=== PATIENT | male | born 1970 | race Caucasian/White ===

== ENCOUNTER 2021-12-12 09:18 | Inpatient (IN) | payer SELFPAY ==
[~2021-12-12] VITALS: Ht 190.5 cm; Wt 104.0 kg
[2021-12-12 09:52] LABS: HEMATOCRIT 44.8 % (42.0-52.0); HEMOGLOBIN 15.1 g/dl (13.5-18.0); MEAN CELL VOLUME 88 fl (80.0-100.0); MEAN CORPUSCULAR HEMOGLOBIN 30 pg (27-31); MEAN CORPUSCULAR HGB CONC 34 g/dl (33.0-37.0); MEAN PLATELET VOLUME 9.6 fl (7.4-10.4); PLATELET COUNT 345 K/mm3 (130-400); RED BLOOD COUNT 5.08 M/mm3 (4.20-5.60); REDCELL DISTRIBUTION WIDTH-CV 11.8 % (11.5-14.5)
[2021-12-12 10:13] LABS: ALBUMIN 3.1 gm/dL (3.5-5.0); BAND 8 % (0-10); BILIRUBIN,TOTAL 0.4 mg/dL (0.2-1.2); C-REACTIVE PROTEIN 8.1 mg/dL (0.00-0.50); CALCIUM 9.1 mg/dL (8.4-10.2); CREATININE, serum 0.94 mg/dL (0.72-1.25); EOSINOPHIL 4 % (0-4); LYMPHOCYTE 25 % (20.0-51.0); NEUTROPHILS 55 % (42.0-75.2); PLATELET ESTIMATE NORMAL (NORMAL); TOTAL PROTEIN 7.5 gm/dL (6.2-8.1)
[2021-12-12 10:27] LABS: ERYTHROCYTE SEDIMENTATION RATE 37 mm/hr (0-15)
[2021-12-12 14:26] VITALS: BP 146/67; PULSE 82; TEMP 98.2
--- NOTE | 2021-12-12 14:48 | NUR ---
Patient resting in in bed, admitted to room 346. He is requesting food and drink [employer] to see patient. Left foot very red and swolled. Toes are black on color. He reports pain is much better in foot once the large blister that was there burst
[2021-12-12 15:43] VITALS: BP 152/84; PULSE 84; TEMP 98.3
--- NOTE | 2021-12-12 16:51 | NUR ---
Patient has returned from [facility]. He is wanting to rest. Started Iv zosyn. Denies needs. Will monitor.
--- NOTE | 2021-12-12 18:54 | NUR ---
Daija RN given report. Patient sitting at edge of bed using Urinal. He has been resting. Wound swab collacted & Consult called to .
[2021-12-12 19:40] VITALS: BP 122/75; PULSE 102; TEMP 98
--- NOTE | 2021-12-12 20:00 | NUR ---
Bedside shift report received, assumed care for material handler 1st shift. Assessment complete. A&Ox3. Denies nausea/shortness of breath/pain. VS stable. TELE reporting SR. Left AC 20g flushes without difficulty. Noted to have redness/swelling/warmth to LLE. Toes to left foot area black with redness above. Plan of care discussed for this shift to include meds/calling for questions/concerns. Verbalizes understanding/denies needs. Call light in reach. Will monitor.
--- NOTE | 2021-12-12 21:38 | NUR ---
Patient screaming out and moaning from room. States she is in pain and "needs an asprin." MYRANDA Chin notified and new orders received and initiated.
[2021-12-12 23:50] VITALS: BP 132/68; PULSE 79; TEMP 98.3
--- NOTE | 2021-12-13 01:28 | NUR ---
Resting eyes closed. No s/s of pain or discomfort.
--- NOTE | 2021-12-13 03:20 | NUR ---
[place] at nurses station moaning out. This nurse to room and patient thrashing around in bed moaning stating "it hurts so bad." Rating pain 8/10 on pain scale to left lower extremity-described as sharp burning. Morphine given per dr order. Instructed again to use call light to call when pain starts to intensify as to not let it get out of hand. Verbalizes understanding. Call light in reach. Will monitor.
[2021-12-13 03:50] VITALS: BP 130/75; PULSE 81; TEMP 98.7
--- NOTE | 2021-12-13 05:44 | NUR ---
Rested off and on this shift. Received morphine x2 for pain to left lower extremity. Denied nausea/shortness of breath. VS remained stable. NS@50ml/hr to left AC infusing without difficulty. Denies current needs. Call light in reach. Will monitor.
[2021-12-13 06:42] LABS: BASO # 0.1 K/mm3 (0.0-0.2); BASO % 0.5 % (0.0-2.0); EOS # 0.3 K/mm3 (0.0-0.7); EOS % 1.7 % (0.0-4.0); GRAN # 10.1 K/mm3 (1.4-6.5); GRAN % 64.6 % (42.2-75.2); HEMATOCRIT 43.3 % (42.0-52.0); HEMOGLOBIN 14.2 g/dl (13.5-18.0); LYMPH # 3.7 K/mm3 (1.2-3.4); LYMPH % 23.9 % (20.0-51.0); MEAN CELL VOLUME 91 fl (80.0-100.0); MEAN CORPUSCULAR HEMOGLOBIN 30 pg (27-31); MEAN CORPUSCULAR HGB CONC 33 g/dl (33.0-37.0); MEAN PLATELET VOLUME 10.3 fl (7.4-10.4); MONO # 1.3 K/mm3 (0.1-0.6); MONO % 8.4 % (1.7-9.3); PLATELET COUNT 315 K/mm3 (130-400); RED BLOOD COUNT 4.77 M/mm3 (4.20-5.60); REDCELL DISTRIBUTION WIDTH-CV 11.8 % (11.5-14.5)
[2021-12-13 07:00] LABS: ALBUMIN 2.6 gm/dL (3.5-5.0); CALCIUM 8.7 mg/dL (8.4-10.2); CREATININE, serum 0.9 mg/dL (0.72-1.25); MAGNESIUM 2.2 mg/dL (1.6-2.6); PHOSPHOROUS 3.4 mg/dL (2.3-4.7); POTASSIUM 4.1 mmol/L (3.5-4.5)
[2021-12-13 07:05] VITALS: BP 134/81; PULSE 80; TEMP 99.3
--- NOTE | 2021-12-13 07:30 | NUR ---
Pt asleep in bed upon entering the room. Pt complains of an achy pain in L foot. Redness, swelling, and warmth to L foot up to the ankle. L foot is very tender and painful to the touch. L pedal pulses were +1 and edema was pitting +2. Skin on L foot is shiny and flaking. Toes on L foot are black with toenails intact. Pt is NPO and has an IV in L AC with normal saline running at 50 ml/hr. IV site has no signs of infiltration. Pt has no other complaints at this time and wants to sleep.
--- NOTE | 2021-12-13 10:05 | NUR ---
Received report from day shift. Patient alert and oriented, resting in bed, complaining of pain in left foot. Patient denies any SOB or chest pain. Assessment performed. Morning meds administered. Patient in bed waiting for breakfast. Will continue to monitor.
[2021-12-13 11:00] VITALS: BP 131/69; PULSE 82; TEMP 99
--- NOTE | 2021-12-13 11:31 | NUR ---
dairy cattle farm worker met with patient to discuss discharge plan. Patient currently lives at home with his girl friend Ai ([phone]) here in [place]. Patient reports to being fully independent with his ADL's and uses a cane to assist with mobility. Patient has no home oxygen needs. He states that he does not currently have a PCP. Patient uses [facility] for medications which he states he has trouble affording. Patient does not have a DPOA-HC established. He has never been legally and has no children. He would like Ai and his friend Xavi marino as his agents. Patient is provided education that if he would like to make these people his agent's then he would need to complete a DPOA-HC form. Patient is provided form and instructions. RN updated that form was provided. Discharge plan:Home; will most likely need HH
[2021-12-13 15:12] VITALS: BP 152/71; PULSE 72; TEMP 98.2
--- NOTE | 2021-12-13 16:26 | NUR ---
CTA of LE ordered. Patient off of floor. Patient escorted to CT by PCT.
--- NOTE | 2021-12-13 18:21 | NUR ---
Patient taken for CTA of LE. Dr. Corrigan called to report his reading of CTA. Dr. Corrigan's number was forwarded to Dr. Rothman. Left lower extremity arterial doppler ordered for further evaluation of gangrene. Patient requested morphine for pain 04/26.
[2021-12-13 19:29] VITALS: BP 157/56; PULSE 86; TEMP 98.3
--- NOTE | 2021-12-13 19:30 | NUR ---
Shift report received, assumed care for night warehouse selector. Assessment complete. A&Ox3. Denies nausea/shortness of breath. VS stable-slightly elevated blood pressure. NS@50ml/hr to left AC-infusing difficulties. Noted to have redness/swelling/erythema to lower calf/ankle. Toes on left foot are black. Plan of care discussed for this shift to include meds/pain control/calling for questions/concerns. Verbalizes understanding. Call light in reach. Will monitor.
--- NOTE | 2021-12-13 21:15 | NUR ---
Called with c/o pain to left foot-described pain as constant throbbing. Spoke with MYRANDA Chin to see if PO pain medications could be ordered instead of IV. [place] ordered and given at this time.
--- NOTE | 2021-12-13 23:30 | NUR ---
Resting eyes closed.
[2021-12-14 00:01] VITALS: BP 135/78; PULSE 71; TEMP 98.9
[2021-12-14 03:47] VITALS: BP 135/81; PULSE 86; TEMP 99.1
--- NOTE | 2021-12-14 05:16 | NUR ---
Called c/o pain. Rating pain 8/10 on pain scale to left foot. Has already received norco-morphine given per dr order. Asked for this nurse to put a dressing on the foot. After gathering supplies and returning to room refused dressing stating "Im afraid it will hurt worse. I cant stand nothing touching it." Instructed to call if changes mind. Verbalizes understanding. Will monitor.
--- NOTE | 2021-12-14 06:00 | NUR ---
Rested off and on this shift. Received [place] for pain x2/morphine x1 for breakthrough pain. NS@50mls/hr infusing to left AC IV without difficulty. Denied nausea/shortness of breath. VS remained stable. AM labs drawn which included a Vanc trough. Denies current needs. Call light in reach. Will monitor.
[2021-12-14 06:02] LABS: BASO # 0.1 K/mm3 (0.0-0.2); BASO % 0.5 % (0.0-2.0); EOS # 0.2 K/mm3 (0.0-0.7); EOS % 1.2 % (0.0-4.0); GRAN # 9.7 K/mm3 (1.4-6.5); GRAN % 66.5 % (42.2-75.2); HEMATOCRIT 43.5 % (42.0-52.0); HEMOGLOBIN 14.4 g/dl (13.5-18.0); LYMPH # 3.4 K/mm3 (1.2-3.4); MEAN CELL VOLUME 90 fl (80.0-100.0); MEAN CORPUSCULAR HEMOGLOBIN 30 pg (27-31); MEAN CORPUSCULAR HGB CONC 33 g/dl (33.0-37.0); MEAN PLATELET VOLUME 10.3 fl (7.4-10.4); MONO # 1.2 K/mm3 (0.1-0.6); PLATELET COUNT 342 K/mm3 (130-400); RED BLOOD COUNT 4.84 M/mm3 (4.20-5.60); REDCELL DISTRIBUTION WIDTH-CV 11.9 % (11.5-14.5)
[2021-12-14 06:43] LABS: ALBUMIN 2.7 gm/dL (3.5-5.0); CREATININE, serum 0.9 mg/dL (0.72-1.25); MAGNESIUM 2.2 mg/dL (1.6-2.6); PHOSPHOROUS 3.9 mg/dL (2.3-4.7); POTASSIUM 4.1 mmol/L (3.5-4.5)
[2021-12-14 06:56] VITALS: BP 137/88; PULSE 76; TEMP 98.7
--- NOTE | 2021-12-14 06:56 | NUR ---
Pt appears drowsy and restless upon entering. Pt complains he didnt get much sleep last night. Peripheral IV in L AC running NS at 50 ml/hr with no signs of infiltration. LLE red and tender to touch. LLE pedal pulse +1 with edema +1. RLE pedal pulse +2. LLE below the ankle is shiny and flaking around the toes. Tops of 1st, 2nd, 3rd and 4th toes on L foot are black and toenails intact. Pt complains of achy feeling in L foot but no other complaints at this time.
--- NOTE | 2021-12-14 08:52 | NUR ---
Radiology called to inform this nurse that the arterial duplex ordered for this patient will not be able to be performed any time soon. Geena from radiology stated that she emailed several providers to let them know that there isn't an individual to perform this study and won't be for quite some time.
--- NOTE | 2021-12-14 09:28 | NUR ---
Received report from day shift. A&OX3. VSS. AM meds administered. Breakfast ordered. Patient resting in bed with call light near.
[2021-12-14 10:55] VITALS: BP 128/81; PULSE 93; TEMP 99.4
--- NOTE | 2021-12-14 12:39 | NUR ---
First visit from the local company hazmat driver. No needs right now.
[2021-12-14 15:34] VITALS: BP 115/78; PULSE 69; TEMP 98.3
--- NOTE | 2021-12-14 15:46 | NUR ---
and RN, Dormitory Counselor, was contacted by the pts primary physician, Dr. Camarillo requesting transfer initiation to a facility with vascular surgery intervention; loan underwriter placed a transfer with [facility] on 12/14/2021 at 1545 for transfer to another facility; pt information given and specialized care needed; [facility] sales representative publications to call back with potential transfers.
[2021-12-14 16:05] LABS: PARTIAL THROMBOPLASTIN TIME 35.7 SECONDS (26.0-37.0)
--- NOTE | 2021-12-14 18:18 | NUR ---
Patient started on HEP GTT. IV to R upper arm started. Patient complains of pain 02/24. Arterial duplex performed. Patient is aware of possible transfer. Patient resting in bed with call light near. Report given to rigging supervisor.
[2021-12-14 19:20] VITALS: BP 130/107; PULSE 88; TEMP 99.1
--- NOTE | 2021-12-14 20:00 | NUR ---
Pt. sitting up in bed. Pt. is A&OX3, assessment complete. IV to lt. ac with ns and abx infusing per orders. IV to rt. ac with heparin gtt running per orders. Pt. denies pain at this time. Attempted doppler to lt. foot at this time. pulse found but very faint. Lt. foot also noted to have +2 edema. Pt. does report that it is very painful to have the foot touched. Awaiting to find out if pt. is to transfer out this evening.
--- NOTE | 2021-12-14 22:00 | NUR ---
MADIHA Thomas in to see pt. at this time. Pt. has been accepted to [facility]. New order received at this time.
--- NOTE | 2021-12-14 22:30 | NUR ---
Marciano preciado. EMS here at this time. Pt. transferred to EMS stretcher with standby assist. Pt. sent with NS running at 50 ml/hr, Vancomycin running per orders to lt. ac. Heparin GTT running per orders to rt. ac. Pt. premedicated for pain, see mar. Pt. denies further needs. Checked pt. room for personal belongings. All belongings sent with the pt. Pt. denies further needs. EMS denies further needs. Pt. sent out with for transfer to [facility].
== END 2021-12-14 22:30 | disposition short-term general hospital (02) | DRG 872 ==
LOC: COL.ER 09:18 → SURG 15:31
PROVIDERS: Internal Medicine; Personal Emergency Response Attendant; ADMIT Internal Medicine
DX: A41.9 Sepsis, unspecified organism (principal); E11.52 Type 2 diabetes mellitus with diabetic peripheral angiopathy with gangrene; I96 Gangrene, not elsewhere classified; L03.116 Cellulitis of left lower limb; F17.210 Nicotine dependence, cigarettes, uncomplicated; E11.42 Type 2 diabetes mellitus with diabetic polyneuropathy; E11.621 Type 2 diabetes mellitus with foot ulcer; L97.529 Non-pressure chronic ulcer of other part of left foot with unspecified severity; E11.628 Type 2 diabetes mellitus with other skin complications; I77.1 Stricture of artery; T38.3X6A Underdosing of insulin and oral hypoglycemic [antidiabetic] drugs, initial encounter; Z91.120 Patient's intentional underdosing of medication regimen due to financial hardship; Z23 Encounter for immunization
CPT/HCPCS: 99223-AI; 99233-AI; 99239; J1170; J1644; J2270; J2405; J2543; J3370; J7030; J7040; J7050

== ENCOUNTER 2022-03-25 08:45 | Emergency (ER) | payer MEDICAID ==
[~2022-03-25] VITALS: Ht 190.5 cm; Wt 100.0 kg
[~2022-03-25 08:45] MED LIST: ASPIRIN E.C. 8181 MG PO; COREG 3.123.125 MG/T PO; DAZIDOX10 MG PO; FENTANYL 50MCG TD; FLEXERIL 1010 MG/TAB PO; MELATIN 3 MG-11 TAB PO; MIRALAX238G PO; PAMELOR 25MG25 MG PO; PERCOCET 325 MG1 TA3 PO; PLAVIX 75MG TAB75 MG PO; PROTONIX 40MG T40 MG PO; TYLENOL 500MG500 MG PO; VALIUM 2MG T2 MG/TAB PO
[2022-03-25 08:51] VITALS: TEMP 98.5
[2022-03-25 09:31] LABS: HEMATOCRIT 51.7 % (42.0-52.0); HEMOGLOBIN 16.7 g/dl (13.5-18.0); MEAN CELL VOLUME 87 fl (80.0-100.0); MEAN CORPUSCULAR HEMOGLOBIN 28 pg (27-31); MEAN CORPUSCULAR HGB CONC 32 g/dl (33.0-37.0); MEAN PLATELET VOLUME 9.3 fl (7.4-10.4); PLATELET COUNT 255 K/mm3 (130-400); RED BLOOD COUNT 5.96 M/mm3 (4.20-5.60); REDCELL DISTRIBUTION WIDTH-CV 12.9 % (11.5-14.5)
[2022-03-25 09:49] LABS: ALBUMIN 3.6 gm/dL (3.5-5.0); BILIRUBIN,TOTAL 0.2 mg/dL (0.2-1.2); C-REACTIVE PROTEIN 0.6 mg/dL (0.00-0.50); CALCIUM 8.9 mg/dL (8.4-10.2); CREATININE, serum 0.92 mg/dL (0.72-1.25); POTASSIUM 3.7 mmol/L (3.5-4.5); TOTAL PROTEIN 7.8 gm/dL (6.2-8.1)
[2022-03-25 09:55] LABS: BAND 1 % (0-10); BASOPHIL 1 % (0-2); EOSINOPHIL 3 % (0-4); LYMPHOCYTE 29 % (20.0-51.0); MYELOCYTE 1 % (0-0); NEUTROPHILS 58 % (42.0-75.2)
[2022-03-25 09:56] LABS: HYPOCHROMIA 1+; PLATELET ESTIMATE NORMAL (NORMAL)
[2022-03-25 10:50] LABS: COLLECTION METHOD CLEAN CATCH
[2022-03-25 10:56] LABS: PH 6 (5-8); SQUAMOUS EPITHELIAL None Seen /hpf (0-10); URINE APPEARANCE Clear (CLEAR/HAZY); URINE BACTERIA Rare /hpf (NONE SEEN); URINE BILIRUBIN Negative (NEGATIVE); URINE BLOOD Negative (NEGATIVE); URINE COLOR Yellow (YELLOW); URINE GLUCOSE Negative (NEGATIVE); URINE KETONE Negative (NEGATIVE); URINE LEUKOCYTE ESTERASE Negative (NEGATIVE); URINE NITRATE Negative (NEGATIVE); URINE PROTEIN(semi-quant) Negative (NEGATIVE); URINE RBC 0-2 /hpf (0-2); URINE UROBILINOGEN Negative (NEGATIVE)
[2022-03-25] MEDS ORDERED: CLEOCIN HCL300 MG PO (12:24)
[2022-03-25 12:55] VITALS: BP 134/102; PULSE 104
== END 2022-03-25 13:00 | disposition left against medical advice (07) ==
LOC: COL.ER 08:45
PROVIDERS: Emergency Medicine
DX: A41.9 Sepsis, unspecified organism (principal); I70.90 Unspecified atherosclerosis; L03.116 Cellulitis of left lower limb; L02.91 Cutaneous abscess, unspecified; Z98.890 Other specified postprocedural states; Z20.822 Contact with and (suspected) exposure to COVID-19
CPT/HCPCS: J2270; J2543; J3010; J3370; J7040; Q9967